=== PATIENT | male | born 1985 | race Caucasian/White ===

== ENCOUNTER 2016-04-11 14:08 | Emergency (ER) | payer OTHER ==
[~2016-04-11] VITALS: Ht 177.8 cm; Wt 102.9 kg
[~2016-04-11 14:08] MED LIST: FRCT/ PO; NAPR1TAB9 PO; ONDA4TAB46 PO
[2016-04-11 14:10] VITALS: TEMP 36.7; Ht 177.8 cm; Wt 102.9 kg
[2016-04-11] MEDS ORDERED: DiphenhydrAMINE HCL 50 MG/ML VIAL IV STA (16:29)
[2016-04-11] MEDS ORDERED: PROCHLORPERAZINE 5 MG/ML 2 ML VIAL IV STA (16:29)
[2016-04-11] MEDS ORDERED: KETOROLAC TROMETHAMINE 30 MG/ML VIAL IV STA (16:29)
[2016-04-11] MEDS ORDERED: SODIUM CHLORIDE 0.9% 1000ML 1,000 ML IV STA (16:29)
[2016-04-11 17:53] VITALS: BP 135/76; PULSE 54; O2SAT 96
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
[2016-04-21] MEDS ORDERED: ACET-1256 PO (16:38)
== END 2016-04-11 17:55 | disposition home or self-care (01) ==
LOC: C.EDB 14:09 → C.EDA 17:55
DX: G43.909 Migraine, unspecified, not intractable, without status migrainosus (principal); J45.909 Unspecified asthma, uncomplicated; F17.200 Nicotine dependence, unspecified, uncomplicated

== ENCOUNTER 2016-04-21 17:37 | Emergency (ER) | payer SELFPAY ==
[~2016-04-21] VITALS: Ht 177.8 cm; Wt 102.5 kg
[~2016-04-21 17:37] MED LIST changes: +ACET-1256 PO; -FRCT/ PO; -NAPR1TAB9 PO; -ONDA4TAB46 PO
[2016-04-21 17:41] VITALS: TEMP 37; Ht 177.8 cm; Wt 102.5 kg
[2016-04-21] MEDS ORDERED: KETOROLAC TROMETHAMINE 30 MG/ML VIAL IV STA (17:53)
[2016-04-21] MEDS ORDERED: LORAZEPAM 2 MG/ML 1 ML VIAL IV STA (17:53)
[2016-04-21] MEDS ORDERED: DiphenhydrAMINE HCL 50 MG/ML VIAL IV STA (17:53)
[2016-04-21] MEDS ORDERED: PROCHLORPERAZINE 5 MG/ML 2 ML VIAL IV STA (17:53)
[2016-04-21] MEDS ORDERED: SODIUM CHLORIDE 0.9% 1000ML 1,000 ML IV STA (17:53)
[2016-04-21] MEDS ORDERED: DEXAMETHASONE SOD INJ 10 MG/ML VIAL IV ONE (18:00)
[2016-04-21] MEDS ORDERED: METH4PAK PO (18:45)
[2016-04-21 19:40] VITALS: BP 133/79; PULSE 86; O2SAT 97
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
== END 2016-04-21 19:56 | disposition home or self-care (01) ==
LOC: C.EDB 17:39
DX: G43.909 Migraine, unspecified, not intractable, without status migrainosus (principal); J45.909 Unspecified asthma, uncomplicated; F17.200 Nicotine dependence, unspecified, uncomplicated; Z87.820 Personal history of traumatic brain injury; Z87.828 Personal history of other (healed) physical injury and trauma; Z87.81 Personal history of (healed) traumatic fracture; Z98.890 Other specified postprocedural states; Z88.0 Allergy status to penicillin; Z88.1 Allergy status to other antibiotic agents; Z80.9 Family history of malignant neoplasm, unspecified; Z83.3 Family history of diabetes mellitus

== ENCOUNTER 2016-06-14 14:25 | Emergency (ER) | payer SELFPAY ==
[~2016-06-14] VITALS: Ht 177.8 cm; Wt 100.4 kg
[2016-06-14 14:30] VITALS: TEMP 36.7; Ht 177.8 cm; Wt 100.4 kg
[2016-06-14] MEDS ORDERED: PROCHLORPERAZINE INJ 10 MG in SYRINGE 8 ML IV STA (15:06)
[2016-06-14] MEDS ORDERED: SODIUM CHLORIDE 0.9% 1000ML 1,000 ML IV STA (15:06)
[2016-06-14] MEDS ORDERED: KETOROLAC TROMETHAMINE 30 MG/ML VIAL IV STA (15:06)
[2016-06-14] MEDS ORDERED: DEXAMETHASONE SOD INJ 10 MG/ML VIAL IV ONE (15:15)
[2016-06-14 16:24] VITALS: BP 106/76; PULSE 78; O2SAT 98
--- NOTE | 2016-06-15 23:41 | EMERGENCY ROOM VISIT NOTE ---
ED Visit Note First contact with patient: 14:41 CHIEF COMPLAINT: Headache. HISTORY OF PRESENT ILLNESS: Mr. Parkinson is a 30 year-old white male who ambulates into the ED accompanied by grandmother complaining of a headache. Historically patient reports he has been suffering for headaches for the last 3- 4 months. This is his third visit into the ED and after multiple evaluations including laboratory tests and CTA of the brain no cause has been identified. It has been encouraged for him to follow-up with neurology but he reports with his current job he cannot take off to be seen. He reports a gradual onset of a severe headache that started approximately 3 days ago. The pain is constant and it is slowly increasing in severity. This is not the worst headache of the life and is similar to previous headaches. Currently he describes the headache as a throbbing and pressure sensation/pain in the behind the right eye area. He rates the pain a 9/10. The pain is nonradiating. His pain worsens with exposure to bright light. He reports when he puts his hand over the area he has mild relief of his discomfort. He has not taken any medications for his discomfort prior to arrival at the hospital. There is been associated light sensitivity, intermittent blurry vision, nausea without vomiting. He denies fever, chills, sweats, skin eruptions, skin color changes, upper respiratory tract symptoms, sinus infections, nasal drainage, decrease in overall vision, hearing changes, sore throat, neck pain/stiffness, chest pain, shortness of breath, abdominal pain, weakness or numbness of the extremities. REVIEW OF SYSTEMS: As noted above in History of Present Illness; all body systems were reviewed with the patient and found to be negative unless noted above otherwise. PAST MEDICAL HISTORY: Asthma, bilateral myringotomy. CURRENT MEDICATIONS: Patient denies. ALLERGIES TO MEDICATIONS: Penicillin. SOCIAL HISTORY: Patient is currently employed; he feels safe in his home environment; he admits to tobacco use and denies alcohol use. PHYSICAL EXAM: Vital Signs: Date Time Temp Pulse Resp B/P Pulse Ox O2 Delivery O2 Flow Rate FiO2 06/14/16 16:24 78 16 106/76 98 06/14/16 15:36 80 16 122/71 99 Room Air 06/14/16 14:30 36.7 87 16 150/86 99 Room Air GENERAL: 30 year-old white female in moderate distress due to pain, afebrile and hemodynamically stable. Found lying in a darkened room. NEUROLOGIC: Awake, alert and oriented to person place and time. Answering questions appropriately and following commands. Cranial nerves II-XII grossly intact. No focal neurologic deficits noted. SKIN: Warm, dry and pink. No rashes, lesions or soft tissue trauma noted. HEENT: Normocephalic, atraumatic. No tenderness or erythema over the frontal or maxillary sinuses. PERRLA. EOMI without nystagmus. Sclerae white and conjunctiva is pink without drainage. Funduscopic examination was deferred due to light sensitivity. No nasal drainage or audible congestion. No malocclusion. No intraoral trauma. Airway patent. No pharyngeal erythema or edema. No tonsillar exudates. No carotid bruits. No thyromegaly. No JVD. Trachea midline. NECK: No tenderness over the cervical and thoracic bony spine. No tenderness or muscle spasm of the paraspinous musculature in the Soft and cervical or thoracic spine. No meningeal symptoms. Full range of motion of the cervical spine. THORAX: Lungs clear to auscultation and equal bilaterally with no wheezing, crackles, rhonchi or stridor and equal chest wall movements. HEART: Regular rate and rhythm with no murmurs, rubs or gallops. ABDOMEN: Soft and nontender with bowel sounds present in all quadrants; no rigidity, rebound tenderness, organomegaly or guarding. MUSCULOSKELETAL: Full range of motion of all joints without any significant discomfort and the gait is normal. ED COURSE: Patient is assessed as noted above. Patient was hydrated with normal saline and received 30 mg of Toradol IV, 10 mg of Decadron IV, 10 mg of Compazine IV. Patient was reassessed. Patient was educated about his condition and instructed on his treatment plan; he verbalized understanding and agreement with this plan. CLINICAL IMPRESSION: Acute headache. DECISION MAKIN-year-old male who presents for evaluation of headache. He is afebrile, well appearing, and hemodynamically stable. He has no signs of a sinus, dental, or ear infection and no evidence of meningismus. He is neurologically intact. I do not suspect a headache to be secondary to a subarachnoid hemorrhage, meningitis, encephalitis, or intracranial mass lesion. DISPOSITION: Patient was discharged to home in stable condition accompanied by his grandmother; prior to departure he was reassessed and subjectively reported he was feeling better and rated his discomfort 5/10. PLAN: Patient was encouraged to go home and rest in a quiet dark area. Patient was encouraged to alternate ibuprofen and acetaminophen as needed for pain. Patient was encouraged to follow-up with neurologist for definitive care and treatment. Patient was encouraged return to the ED for worsening headaches, fever, abnormal neurological symptoms or any new/concerning symptoms.
== END 2016-06-14 16:24 | disposition home or self-care (01) ==
LOC: C.EDB 14:26 → C.EDC 16:24
DX: R51 Headache (principal); J45.909 Unspecified asthma, uncomplicated; Z72.0 Tobacco use